=== PATIENT | female | born 1990 | race Hispanic/Latino ===

== ENCOUNTER → 2017-08-25 | Outpatient (CLI) | payer MEDICAID ==
[~2017-08-25] MED LIST: GADOBENATE DIMEGLUMINE 10 ML IV ONE; GADOBENATE DIMEGLUMINE 20 ML IV ONE
== END ==
LOC: RAH 12:13
PROVIDERS: ATTEND Otolaryngology Plastic Surgery within the Head & Neck
DX: H91.92 Unspecified hearing loss, left ear (principal)
CPT/HCPCS: 70553 ×2; A9577

== ENCOUNTER → 2020-02-24 | Outpatient (CLI) | payer MEDICAID | END | disposition home or self-care (01) | LOC: SHCH 09:52 | PROVIDERS: ATTEND Internal Medicine Cardiovascular Disease | DX: Q93.82 Williams syndrome (principal) | CPT/HCPCS: 93306 ==

== ENCOUNTER → 2021-02-22 | Outpatient (CLI) | payer MEDICAID | END | disposition home or self-care (01) | LOC: SHCH 13:47 | PROVIDERS: ATTEND Internal Medicine Cardiovascular Disease | DX: I34.0 Nonrheumatic mitral (valve) insufficiency (principal) | CPT/HCPCS: 93306; 93356 ==

== ENCOUNTER → 2022-07-24 | Outpatient (CLI) | payer MEDICAID | END | disposition home or self-care (01) | LOC: RAH 14:16 | PROVIDERS: ATTEND Internal Medicine Cardiovascular Disease | DX: I34.0 Nonrheumatic mitral (valve) insufficiency (principal); I34.1 Nonrheumatic mitral (valve) prolapse; E78.5 Hyperlipidemia, unspecified | CPT/HCPCS: 93306 ==

== ENCOUNTER → 2023-08-24 | Outpatient (CLI) | payer MEDICAID | END | disposition home or self-care (01) | LOC: LAB 13:15 | PROVIDERS: ATTEND Internal Medicine Cardiovascular Disease | DX: I50.20 Unspecified systolic (congestive) heart failure (principal) | CPT/HCPCS: 36415; 83880 ==